=== PATIENT | male | born 1990 | race Caucasian/White ===

== ENCOUNTER 2020-06-16 01:44 | Emergency (ER) | payer SELFPAY ==
[2020-06-16 01:45] VITALS: BP 99/53; PULSE 82; RESP 15; TEMP 36.8; O2SAT 100; BMI 23.3
[2020-06-16] MEDS: Ondansetron 4 MG/2 ML Vial IV (02:07)
[2020-06-16] MEDS: 0.9% Normal Saline 1,000 ML 1000 ML IV (02:07)
[2020-06-16 02:14] LABS: Absolute Lymphocyte Count 0.52 X10^3/uL (0.83-4.51); Basophil# 0.09 X10^3/uL; Basophil% 0.5 % (0-1); Eosinophil# 0.09 X10^3/uL; Eosinophils% 0.5 % (0-5); Hematocrit 46.9 % (40-54); Hemoglobin 16.8 g/dL (13.0-16.5); Lymphocyte # 0.52 X10^3/ul (0.83-4.51); Lymphocyte % 2.8 % (19-41); Mean Corp Hgb Conc 35.8 g/dL (32-36); Mean Corpuscular Hgb 32.7 pg (27.0-32.0); Mean Corpuscular Volume 91.4 fL (80-94); Mean Platelet Vol. 9.4 fl (6.2-12.0); Monocyte# 0.86 X10^3/uL; Monocyte% 4.6 % (0-10); NRBC Flagged by Analyzer 0 % (0-5); Neutrophil # 16.98 X10^3/uL (2.7-7.7); Neutrophil % 91.1 % (47-70); POSITIVE DIFFERENTIAL YES; Platelet Count 296 K/mm3 (150-450); RBC Distribution Width CV 11.4 % (11.6-14.6); RBC Distribution Width SD 38.6 fl (35.1-43.9); Red Blood Count 5.13 M/mm3 (4.6-6.2); White Blood Count 18.6 K/mm3 (4.4-11.0)
[2020-06-16 02:26] LABS: Differential Indicated SCAN CRITERIA MET
[2020-06-16 02:36] LABS: AST(SGOT) 17 U/L (15-37); Alanine Aminotransfer ALT/SGPT 20 U/L (16-61); Albumin, Serum 5.5 g/dL (3.2-5.0); Alkaline Phosphatase 80 U/L (45-117); Anion Gap 10 (5-15); BUN 11 mg/dL (7-18); BUN/Creat Ratio 7.5 RATIO (10-20); Bilirubin, Direct 0.38 mg/dL (0.00-0.30); Calcium,Total 10.6 mg/dL (8.5-10.1); Chloride 101 mmol/L (98-107); Creatinine, Serum 1.46 mg/dL (0.70-1.30); EST Glomerular Filtration Rate 60 mL/min (>60); Est Glom Filt Rate - Afr Amer 73 mL/min (>60); Estimated Creatinine Clearance 76.39 ml/min; Globulin 3.6 g/dL (2.2-4.2); Glucose 156 mg/dL (74-106); Lipase 138 U/L (73-393); Protein, Total 9.1 g/dL (6.4-8.2); Sodium Level 138 mmol/L (136-145)
[2020-06-16 02:59] VITALS: BP 148/79; PULSE 73; RESP 16; O2SAT 99
[2020-06-16] MEDS: DiphenhydrAMINE 50 MG/ML Syringe 25 MG IV (03:44)
[2020-06-16] MEDS: Metoclopramide 10 MG/2 ML Vial IV (03:44)
[2020-06-16 04:06] LABS: Differential Comment SCANNED
--- NOTE | 2020-06-16 05:17 | ED.DCSUM_ITS ---
History of Present Illness Chief Complaint: Nausea/Vomiting Informant: Patient Onset: Today Current Severity: Moderate Maximum Severity: Moderate Narrative: Patient presents secondary to vomiting. He states he ate pizza a short time ago and shortly after that developed upper abdominal pain with vomiting. He denies recent illness. No fevers or chills. No diarrhea. Past Medical History - Allergies and Home Meds Allergies/Adverse Reactions: Allergies TREE NUTS Allergy (Uncoded 06/16/20 01:44) Vomiting Primary Care Physician: Christina Fuller MD [STAFF PHYSICIAN] - As Needed Prior records reviewed: Yes Smoking Status: Never smoker Review of Systems General: Denies: Chills, Fever Eyes: Denies: Visual changes - bilaterally ENT: Denies: Bilateral ear pain Cardiovascular: Denies: Chest pain Respiratory: Denies: Dyspnea, Cough Gastrointestinal: Reports: Abdominal pain, Nausea, Vomiting. Denies: Diarrhea Genitourinary: Denies: Dysuria Skin: Reports: - Neurological: Denies: Headache Psych: Denies: Depression Hematologic: Denies: Easy bruising, Easy bleeding Allergy: Denies: Uticaria Physical Exam Vital Signs/Narrative: Vital Signs Temp Pulse Resp BP Pulse Ox 06/16/20 02:59 73 16 148/79 H 99 06/16/20 01:45 98.3 F 82 15 99/53 L 100 Inital Vital Signs reviewed: Yes General: Well nourished, Well developed Head: Normocephalic ENT: Moist mucous membranes Neck: Supple Cardiovascular: Regular rate, Regular rhythm Respiratory: No distress, CTA bilaterally Abdomen: Soft, Tender - Mild epigastric tenderness., Hypoactive bowel sounds. Negative for: Guarding, Rebound tenderness Extremities: Nontender Skin: - - Small broken capillaries in the face secondary to forceful retching Neurological: Alert, Oriented x3 Psychological: - - Anxious Diagnostic/Tx/Re-eval Laboratory Results 06/16/20 06/16/20 02:05 02:05 WBC 18.6 H RBC 5.13 Hgb 16.8 H Hct 46.9 MCV 91.4 MCH 32.7 H MCHC 35.8 RDW Std Deviation 38.6 RDW Coeff of Kobe 11.4 L Plt Count 296 MPV 9.4 Immature Gran % (Auto) 0.500 Neut % (Auto) 91.1 H Lymph % (Auto) 2.8 L [place] % (Auto) 4.6 Eos % (Auto) 0.5 Baso % (Auto) 0.5 Absolute Neuts (auto) 17.0 H Absolute Lymphs (auto) 0.52 L Nucleated RBC % 0 Differential Comment SCANNED Sodium 138 Potassium 4.0 Chloride 101 Carbon Dioxide 27.0 Anion Gap 10 BUN 11 Creatinine 1.46 H Estim Creat Clear Calc 76.39 Est GFR (MDRD) Af Amer 73 Est GFR (MDRD) Non-Af 60 BUN/Creatinine Ratio 7.5 L Glucose 156 H Calcium 10.6 H Total Bilirubin 1.70 H Direct Bilirubin 0.38 H AST 17 ALT 20 Alkaline Phosphatase 80 Total Protein 9.1 H Albumin 5.5 H Globulin 3.6 Lipase 138 - Medical Decision Making Patient was ordered Zofran and IV fluids. CBC returned with elevated white count at 18 and hemoconcentration with a hemoglobin of 16. Due to continued vomiting patient was given Reglan and Benadryl. On repeat evaluation patient is sleeping comfortably. When he awakens he does note improvement in his symptoms. I do believe his elevated white count is acute reaction from his retching. Patient appears nontoxic. Prescription for antiemetics have been sent to the pharmacy for him if needed. ED Disposition - Plan for ED Patient: Disposition: Home or Assisted Living Diagnosis: Vomiting Instructions: ED Vomiting (Adult) Prescriptions: Ondansetron [Zofran Odt] 4 mg PO Q8H PRN PRN #10 tablet PRN Reason: Nausea Transmission Status: Received by [facility]/pharmacy #[id number] Referrals: Christina Fuller MD [STAFF PHYSICIAN] - As Needed
[2020-06-16 05:29] VITALS: BP 124/63; PULSE 75; RESP 16; O2SAT 99
== END 2020-06-16 05:30 | disposition home or self-care (01) ==
PROVIDERS: Emergency Provider Emergency Medicine
DX: R11.2 Nausea with vomiting, unspecified (principal); R10.10 Upper abdominal pain, unspecified
CPT/HCPCS: 80048; 80076; 83690; 85025; 96361; 96374; 96375; 99285; J7030; A4216; J2405